=== PATIENT | male | born 1980 | race Caucasian/White ===

== ENCOUNTER 2016-10-11 07:41 | Emergency (ER) | payer OTHER ==
[2016-10-11 08:01] VITALS: BP 127/84; PULSE 92; RESP 16; TEMP 99.1; O2SAT 95
--- NOTE | 2016-10-11 08:37 | UCPHY ---
H & P Time Seen by Provider: 10/11/16 08:29 Patient Type: New HPI/ROS: This patient has a 3 week history of nasal congestion. He had a cough 1st 2 weeks that resolved week ago and now is mild sore throat. He also reports diarrhea for few days that has since resolved. He reports that he is here because he is tired of having nasal congestion he has no other active symptoms besides the nasal congestion and mild sore throat at this time. ROS: No fevers or chills. No other constitutional symptoms. HEENT: No ear pain. No difficulty swallowing food. Pulmonary: No shortness of breath or cough at this time cardiovascular: No lightheadedness GI: No vomiting. Integumentary: No skin rash. 7 point ROS is otherwise negative. Smoking Status: Never smoked Physical Exam: Physical Exam Vital signs are normal. General: No acute distress HEENT: Nose: Clear discharge bilaterally. No sinus tenderness to percussion. Ears: External canals and TMs are clear bilaterally. Oropharynx: No significant erythema or exudates. No dysphonia. Eyes: Pupils equal and react to light. Extraocular motions are intact. Lungs: Clear to auscultation bilaterally. No respiratory distress. Cardiac: Regular rate and rhythm with no murmur gallop or rub Skin: No rash or pallor. Neuro: Alert and oriented x3 with no sensorimotor deficits. Differential diagnosis: Viral URI. Doubt sinusitis Constitutional: Initial Vital Signs Temperature (C) 37.3 C 10/11/16 07:57 Heart Rate 92 10/11/16 07:57 Respiratory Rate 16 10/11/16 07:57 Blood Pressure 127/84 H 10/11/16 07:57 O2 Sat (%) 95 10/11/16 07:57 O2 Delivery Mode Room Air Allergies/Adverse Reactions: No Known Allergies Allergy (Unverified 10/11/16 08:38) Home Medications: Medication Instructions Recorded Fluticasone Nasal [Flonase Nasal 2 sprays NASAL DAILY #1 mdi 10/11/16 Bernard (RX)] MDM/Departure - Depart Disposition: Home, Routine, Self-Care Clinical Impression: URI (upper respiratory infection) Qualifiers: URI type: unspecified viral URI Qualifier Code: (J06.9) Acute upper respiratory infection, unspecified Condition: Good Instructions: Upper Respiratory Infection (ED) Additional Instructions: Diagnosis: Viral upper respiratory infection Plan: Humidifier Flonase steroid nasal spray Tylenol or ibuprofen if needed for discomfort. Your symptoms should improve over the next 3-7 days. Prescriptions: Fluticasone Nasal [Flonase Nasal Bernard (RX)] 2 sprays NASAL DAILY #1 mdi Referrals: NONE *PRIMARY CARE P,. [Primary Care Provider] - As per Instructions - PQRS PQRS Measurement: NA
== END 2016-10-11 08:44 | disposition home or self-care (01) ==
LOC: CED 07:41
DX: J06.9 Acute upper respiratory infection, unspecified (principal)
CPT/HCPCS: 99203-PO; G0463-PO